=== PATIENT | female | born 1980 | race Two or more races ===

== ENCOUNTER 2018-09-19 09:00 | Emergency (ER) | payer OTHER ==
[~2018-09-19] VITALS: Ht 157.5 cm; Wt 55.5 kg
--- NOTE | 2018-09-19 10:12 | REP ---
CT Head without contrast HISTORY: Trauma COMPARISON: None There is no intraparenchymal hemorrhage, acute infarct, mass or midline shift. The ventricular system is normal in appearance. There is no extra cerebral collection. There is no fracture. The visualized sinuses are clear. IMPRESSION: There is no intracranial lesion. Electronically Signed by Mal Shannon MD 09/19/2018 10:03 A
--- NOTE | 2018-09-19 10:29 | REP ---
MAXILLOFACIAL CT WITHOUT CONTRAST: HISTORY: Trauma. Mucosal thickening is present in the right maxillary sinus. The remaining sinuses are clear. Mucosal thickening involves the right ostiomeatal unit. The left ostiomeatal unit is patent. The middle and inferior nasal turbinates are partially paradoxical. There is raya bullosa of the middle nasal turbinates. There is mild deviation of the nasal septum to the left. The cribriform plate, medial bowen of the orbits and optic canals are intact. The carotid canals form a segment of the posterolateral bowen of the sphenoid sinus. There is a fracture of the floor of the right orbit. There is inferior extension of intraorbital fat through the orbital floor. There is enlargement of the inferior rectus muscle consistent with edema and/or hematoma. The remaining rectus muscles, optic nerve and globe are normal in appearance. Contents of the left orbit are normal. Periapical lucency involves several teeth in the right maxilla. IMPRESSION: 1. Sinus mucosal thickening as described above. 2. Fracture of the floor of the right orbit. Electronically Signed by Mal Shannon MD 09/19/2018 10:36 A
[2018-09-19] MEDS ORDERED: AUGM875T28 PO (11:24)
[2018-09-19] MEDS ORDERED: NORCOTAB PO (11:24)
[2018-09-19] MEDS ORDERED: NORCO, ANEXSIA 5/325MG TABLET (HYDROcodone/ACETAMINOPHEN) PO ONE (11:30)
[2018-09-19] MEDS ORDERED: AUGMENTIN 875 MG TAB PO ONE (11:30)
[2018-09-19 11:47] VITALS: BP 136/72
== END 2018-09-19 11:49 | disposition home or self-care (01) ==
LOC: M ED 09:00
DX: T74.91XA Unspecified adult maltreatment, confirmed, initial encounter (principal); S02.31XA Fracture of orbital floor, right side, initial encounter for closed fracture; J34.89 Other specified disorders of nose and nasal sinuses; Y07.9 Unspecified perpetrator of maltreatment and neglect; Y92.89 Other specified places as the place of occurrence of the external cause; F17.200 Nicotine dependence, unspecified, uncomplicated

== ENCOUNTER 2018-11-20 03:49 | Emergency (ER) | payer OTHER ==
[~2018-11-20] VITALS: Ht 167.6 cm; Wt 59.3 kg
[~2018-11-20 03:49] MED LIST: AUGM875T28 PO; HYDR-3715 PO
[2018-11-20] MEDS: MIDAZOLAM INJ 5 MG/ML VIAL (J2250) IM ONE ×3 (04:10→04:43)
[2018-11-20] MEDS: MIDAZOLAM INJ 5 MG/ML VIAL (J2250) IV STA ×3 (04:16→04:45)
[2018-11-20 04:28] LABS: HEMOGLOBIN 12.9 g/dl (12.0-15.5); MEAN CORPUSCULAR HEMOGLOBIN 31.2 pg (27.0-33.0); MEAN CORPUSCULAR HGB CONC 32.3 g/dl (32.0-36.5); MEAN CORPUSCULAR VOLUME 96.9 fl (80.0-96.0); PLATELET COUNT, AUTOMATED 282 10^3/uL (150-450); RED BLOOD COUNT 4.13 10^6/uL (4.00-5.40); WHITE BLOOD COUNT 8.7 10^3/uL (4.0-10.0)
[2018-11-20 04:54] LABS: HCG, SERUM QUALITATIVE NEGATIVE (NEGATIVE)
[2018-11-20] MEDS ORDERED: MIDAZOLAM INJ 5 MG/ML VIAL (J2250) IM ONE (05:00)
[2018-11-20 05:03] LABS: ACETAMINOPHEN LEVEL < 2.0 UG/ML (10.0-30.0); ALBUMIN 4.5 GM/DL (3.2-5.2); ALT/SGPT 39 U/L (12-78); BILIRUBIN,DIRECT < 0.1 MG/DL (0.0-0.2); BILIRUBIN,TOTAL 0.3 MG/DL (0.2-1.0); BLOOD UREA NITROGEN 16 MG/DL (7-18); CALCIUM LEVEL 8.5 MG/DL (8.5-10.1); CARBON DIOXIDE LEVEL 25 MEQ/L (21-32); CHLORIDE LEVEL 109 MEQ/L (98-107); CREATININE FOR GFR 0.81 MG/DL (0.55-1.30); ETHYL ALCOHOL (ETHANOL) 0.262 % (0.000-0.010); GLOMERULAR FILTRATION RATE > 60.0 (>58); GLUCOSE, FASTING 132 MG/DL (70-100); POTASSIUM SERUM 4.9 MEQ/L (3.5-5.1); SALICYLATE LEVEL < 1.7 MG/DL (5.0-30.0); SODIUM LEVEL 144 MEQ/L (136-145); THYROID STIMULATING HORMONE 0.476 uIU/ML (0.358-3.740); TOTAL PROTEIN 8.3 GM/DL (6.4-8.2)
[2018-11-20 05:15] LABS: AMPHETAMINES LEVEL URINE NEGATIVE (NEGATIVE); BARBITURATES URINE NEGATIVE (NEGATIVE); BENZODIAZEPINES URINE NEGATIVE (NEGATIVE); CANNABINOIDS URINE NEGATIVE (NEGATIVE); COCAINE METABOLITE URINE NEGATIVE (NEGATIVE); METHADONE URINE NEGATIVE (NEGATIVE); OPIATES URINE NEGATIVE (NEGATIVE); PHENCYCLIDINE URINE NEGATIVE (NEGATIVE)
[2018-11-20] MEDS ORDERED: NS 1,000 ML IV ONE (05:45)
[2018-11-20] MEDS ORDERED: ONDANSETRON 4MG/2ML VIAL (J2405) IV ONE (09:45)
[2018-11-20 15:16] VITALS: BP 112/57
== END 2018-11-20 15:50 | disposition home or self-care (01) ==
LOC: M ED 03:49
DX: F10.129 Alcohol abuse with intoxication, unspecified (principal); Z72.0 Tobacco use; Z88.8 Allergy status to other drugs, medicaments and biological substances; Z91.040 Latex allergy status
CPT/HCPCS: 36415; 51701; 80048; 80076; 80307; 84443; 84703; 85027; 96372; 96374; 96375; 99285; G0480; J2250; J2405

== ENCOUNTER 2018-11-25 09:47 | Emergency (ER) | payer OTHER ==
[~2018-11-25] VITALS: Ht 154.9 cm; Wt 59.4 kg
[2018-11-25] MEDS ORDERED: BACT800T5 PO (11:50)
[2018-11-25 12:05] VITALS: BP 128/73
== END 2018-11-25 12:06 | disposition home or self-care (01) ==
LOC: M ED 09:47
DX: N30.91 Cystitis, unspecified with hematuria (principal); F43.10 Post-traumatic stress disorder, unspecified; Z88.8 Allergy status to other drugs, medicaments and biological substances; Z91.040 Latex allergy status

== ENCOUNTER → 2019-01-27 | Outpatient (REF) | payer OTHER ==
[~2019-01-27] MED LIST changes: +BACT800T5 PO
[2019-01-27 13:19] LABS: HEMATOCRIT 35.8 % (36.0-47.0); HEMOGLOBIN 11.6 g/dl (12.0-15.5); MEAN CORPUSCULAR HEMOGLOBIN 30.2 pg (27.0-33.0); MEAN CORPUSCULAR HGB CONC 32.4 g/dl (32.0-36.5); MEAN CORPUSCULAR VOLUME 93.2 fl (80.0-96.0); PLATELET COUNT, AUTOMATED 250 10^3/uL (150-450); RED BLOOD COUNT 3.84 10^6/uL (4.00-5.40); WHITE BLOOD COUNT 6.4 10^3/uL (4.0-10.0)
[2019-01-27 13:30] LABS: FERRITIN 27 NG/ML (8-252); FREE T4 0.94 NG/DL (0.76-1.46); IRON (FE) 101 UG/DL (50-170); PERCENT SATURATION 32.5 % (13.2-45.0); THYROID STIMULATING HORMONE 0.854 uIU/ML (0.358-3.740); TOTAL IRON BINDING CAPACITY 311 UG/DL (250-450)
[2019-01-27 13:32] LABS: FOLATE 15.6 NG/ML (>5.4)
[2019-01-27 14:12] LABS: HIV 1&2 SCREEN CENTAUR NEGATIVE (NEGATIVE)
== END ==
LOC: M LABDRAW1 10:12
PROVIDERS: ATTEND Hospitalist
DX: R53.83 Other fatigue (principal); Z11.4 Encounter for screening for human immunodeficiency virus [HIV]

== ENCOUNTER → 2019-12-23 | Outpatient (REF) | payer OTHER ==
[~2019-12-23] MED LIST changes: +CITA20TA6 PO
[2019-12-23 20:58] LABS: CHLAMYDIA DNA AMPLIFICATION NEGATIVE (NEGATIVE); GC DNA AMPLIFICATION NEGATIVE (NEGATIVE)
== END ==
LOC: M SFHCPLAZ 16:43
PROVIDERS: ATTEND Hospitalist
DX: Z11.3 Encounter for screening for infections with a predominantly sexual mode of transmission (principal)